=== PATIENT | male | born 1940 | race Caucasian/White ===

== ENCOUNTER 2024-01-17 11:54 | Emergency (ER) | payer MEDICARE, OTHER ==
[~2024-01-17] VITALS: Ht 172.7 cm; Wt 71.0 kg
[~2024-01-17 11:54] MED LIST: ACET325T51 PO; CIPR500T10 PO; DOCU-385 PO
[2024-01-17 12:34] VITALS: TEMP 98.1
[2024-01-17 15:32] VITALS: BP 126/59; PULSE 58; RESP 20
[2024-01-17 23:21] LABS: GLUCOMETER DEV NAME(LOC) ER.6; GLUCOSE,POINT OF CARE 97 MG/DL (70-110)
== END 2024-01-17 15:45 ==
LOC: EMS 11:55
DX: S42.201A Unspecified fracture of upper end of right humerus, initial encounter for closed fracture (principal); Z89.432 Acquired absence of left foot; X58.XXXA Exposure to other specified factors, initial encounter; Y93.89 Activity, other specified; Y92.89 Other specified places as the place of occurrence of the external cause; Y99.8 Other external cause status
CPT/HCPCS: 29105; 82962; 93005; 99284

== ENCOUNTER 2024-06-30 13:21 | Inpatient (IN) | payer MEDICARE, OTHER ==
[~2024-06-30] VITALS: Ht 167.6 cm; Wt 68.5 kg
[~2024-06-30 13:21] MED LIST changes: -ACET325T51 PO; +ACID1GRA PO; +ASCO500 PO; -CIPR500T10 PO; +DIVA125C20 PO; -DOCU-385 PO; +TRAZ-257 PO
[2024-06-30] MEDS ORDERED: HYDR-4062 PO (13:29)
[2024-06-30 14:06] LABS: BASOPHILS % (AUTO) 0.6 % (0.0-2.0); EOSINOPHILS % (AUTO) 0.4 % (1.0-6.0); HEMATOCRIT 43.6 % (41-53); HEMOGLOBIN 14.2 g/dL (13.5-17.5); LYMPHOCYTES # (AUTO) 1.7 K/uL (1.0-4.8); LYMPHOCYTES % (AUTO) 16.8 % (22.0-44.0); MEAN CORPUSCULAR HEMOGLOBIN 30.3 pg (26.0-34.0); MEAN CORPUSCULAR HGB CONC 32.5 G/dL (31.0-37.0); MEAN CORPUSCULAR VOLUME 93 fL (80-100); MONOCYTES # (AUTO) 0.8 K/uL (0.1-1.0); MONOCYTES % (AUTO) 7.6 % (2.0-9.0); NEUTROPHILS # (AUTO) 7.5 K/uL (1.8-7.7); NEUTROPHILS % (AUTO) 74.6 % (40.0-70.0); PLATELET COUNT (AUTO) 259 K/uL (150-450); RED BLOOD CELL COUNT(AUTO) 4.68 MIL/uL (4.50-5.90); RED CELL DISTRIBUTION WIDTH 14.9 % (11.5-14.5)
[2024-06-30 14:15] LABS: ANION GAP 7 mmol/L (8-16); CALCIUM, TOTAL 8.9 mg/dL (8.8-10.5); CARBON DIOXIDE 28 mmol/L (22-29); CHLORIDE 102 mmol/L (98-107); CREATININE 0.97 mg/dL (0.60-1.30); GLOMERULAR FILTR. RATE CALC > 60 mL/min (>60); GLUCOSE,RANDOM 109 mg/dL (70-110); POTASSIUM 4.5 mmol/L (3.5-5.1); SODIUM SERUM 137 mmol/L (136-145); UREA NITROGEN, BLOOD 22 mg/dL (7-18)
[2024-06-30 14:22] LABS: ALANINE AMINOTRANSFERASE 18 U/L (12-78); ALBUMIN 2.7 g/dL (3.4-5.0); ALCOHOL, BLOOD (SERUM) < 3 mg/dL (0-10); ALKALINE PHOSPHATASE 74 U/L (46-116); ASPARTATE AMINOTRANSFERASE 19 U/L (15-37); BILIRUBIN,TOTAL 0.5 mg/dL (0.1-1.0); TOTAL PROTEIN, SERUM 6.6 g/dL (6.4-8.2)
[2024-06-30] MEDS ORDERED: ZOLPIDEM TARTRATE 5 MG TABLET PO PRN (15:15)
[2024-06-30] MEDS ORDERED: ONDANSETRON HCL 4 MG/2 ML VIAL IVP PRN (15:15)
[2024-06-30] MEDS ORDERED: BISACODYL 10 MG RECTAL RECTAL SUPPOSITORY PR PRN (15:15)
[2024-06-30] MEDS ORDERED: MAGNESIUM HYDROXIDE SUSPENSION 30 ML UDCUP PO PRN (15:15)
[2024-06-30] MEDS ORDERED: MORPHINE SULFATE 2 MG/ML SYRINGE IVP PRN (15:15)
[2024-06-30] MEDS ORDERED: TRAZ-252 PO (15:18)
[2024-06-30] MEDS ORDERED: DIVA-112 PO (15:18)
[2024-06-30] MEDS ORDERED: PARO-37 PO (15:18)
[2024-06-30 16:09] LABS: COVID AG,FIA SOURCE NASAL SWAB
[2024-06-30] MEDS: SODIUM CHLORIDE 0.9% 1,000 ML IV ONE (16:12)
[2024-06-30] MEDS: CEPHALEXIN MONOHYDRATE 500 MG CAPSULE PO SCH (16:12)
[2024-06-30] MEDS: HEPARIN SODIUM,PORCINE 5,000 UNITS/ML VIAL SQ SCH (16:13)
[2024-06-30 16:41] LABS: SARS-COV2 (COVID) ANTIGEN,FIA Negative (Negative)
[2024-06-30] MEDS: DOCUSATE SODIUM 100 MG CAPSULE PO SCH (20:22)
[2024-06-30 20:35] LABS: APPEARANCE,URINE CLEAR (CLEAR); BILIRUBIN,URINE NEGATIVE (NEGATIVE); COLOR,URINE LIGHT YELLOW (YELLOW); GLUCOSE, URINE (UA) NEGATIVE (NEGATIVE); KETONES,URINE NEGATIVE (NEGATIVE); LEUKOCYTE ESTERASE ,URINE NEGATIVE (NEGATIVE); NITRATE,URINE NEGATIVE (NEGATIVE); OCCULT BLOOD,URINE NEGATIVE (NEGATIVE); PROTEIN,URINE NEGATIVE (NEGATIVE); SPECIFIC GRAVITIY, URINE 1.014 (1.003-1.030); UROBILINOGEN,URINE <=1.0 mg/dL (<=1.0)
[2024-06-30 21:05] VITALS: BP 132/71; PULSE 53; RESP 19; TEMP 96.7; O2SAT 99
[2024-06-30 21:06] LABS: AMPHET/METH SCREEN,URINE NEGATIVE (NEGATIVE); BARBITURATE SCREEN, URINE NEGATIVE (NEGATIVE); BENZODIAZEPINES SCREEN,URINE NEGATIVE (NEGATIVE); CANNABINOID SCREEN,URINE NEGATIVE (NEGATIVE); COCAINE SCREEN,URINE NEGATIVE (NEGATIVE); METHADONE SCREEN, URINE NEGATIVE (NEGATIVE); OPIATE SCREEN,URINE NEGATIVE (NEGATIVE); PHENCYCLIDINE SCREEN,URINE NEGATIVE (NEGATIVE)
[2024-06-30 21:07] LABS: ALCOHOL, URINE DRUG SCREEN NEGATIVE (NEGATIVE)
[2024-06-30] MEDS: DIVALPROEX SODIUM 500 MG DR TABLET PO SCH (22:22)
[2024-06-30] MEDS: LACTOBACILLUS ACIDOPHILUS/BULGARICUS GRANULES PACKET PO SCH (22:23)
[2024-06-30] MEDS: ASCORBIC ACID 500 MG TABLET PO SCH (22:23)
[2024-06-30] MEDS: TraZODone HCL 100 MG TABLET PO SCH (22:23)
[2024-06-30 23:09] VITALS: BP 132/66; PULSE 56; RESP 18; TEMP 96.4; O2SAT 96
[2024-07-01 03:03] VITALS: BP 136/61; PULSE 57; RESP 18; TEMP 96.3; O2SAT 97
[2024-07-01] MEDS: HYDROCODONE/ACETAMINOPHEN 5-325 MG TABLET PO PRN (04:41)
[2024-07-01 07:28] LABS: BASOPHILS % (AUTO) 0.6 % (0.0-2.0); EOSINOPHILS % (AUTO) 0.6 % (1.0-6.0); HEMOGLOBIN 13.8 g/dL (13.5-17.5); LYMPHOCYTES # (AUTO) 1.7 K/uL (1.0-4.8); LYMPHOCYTES % (AUTO) 23.3 % (22.0-44.0); MEAN CORPUSCULAR HEMOGLOBIN 30.4 pg (26.0-34.0); MEAN CORPUSCULAR HGB CONC 32.8 G/dL (31.0-37.0); MEAN CORPUSCULAR VOLUME 93 fL (80-100); MONOCYTES # (AUTO) 0.5 K/uL (0.1-1.0); MONOCYTES % (AUTO) 7.2 % (2.0-9.0); NEUTROPHILS % (AUTO) 68.3 % (40.0-70.0); PLATELET COUNT (AUTO) 251 K/uL (150-450); RED BLOOD CELL COUNT(AUTO) 4.53 MIL/uL (4.50-5.90); WHITE BLOOD COUNT (AUTO) 7.3 K/uL (4.5-11.0)
[2024-07-01 07:37] LABS: ANION GAP 10 mmol/L (8-16); CALCIUM, TOTAL 8.5 mg/dL (8.8-10.5); CARBON DIOXIDE 25 mmol/L (22-29); CHLORIDE 103 mmol/L (98-107); CREATININE 0.93 mg/dL (0.60-1.30); GLOMERULAR FILTR. RATE CALC > 60 mL/min (>60); GLUCOSE,RANDOM 143 mg/dL (70-110); SODIUM SERUM 138 mmol/L (136-145); UREA NITROGEN, BLOOD 17 mg/dL (7-18)
[2024-07-01 08:42] VITALS: BP 132/68; PULSE 59; RESP 18; TEMP 98; O2SAT 98
[2024-07-01] MEDS: ACETAMINOPHEN 325 MG TABLET PO PRN (08:47)
[2024-07-01] MEDS: PANTOPRAZOLE SODIUM 40 MG DR TABLET PO SCH (08:47)
[2024-07-01] MEDS: ASPIRIN 81 MG CHEWABLE TABLET PO SCH (15:26)
[2024-07-01] MEDS ORDERED: 0.9% SODIUM CHLORIDE 10 ML SYRINGE IVP ONE (16:23)
[2024-07-01] MEDS ORDERED: IOHEXOL 300 MG/ML 100 ML VIAL ONE (16:24)
[2024-07-01] MEDS ORDERED: SODIUM CHLORIDE 0.9% 100 ML ONE (16:24)
[2024-07-01 16:46] VITALS: BP 135/60; PULSE 54; RESP 18; TEMP 98.5; O2SAT 97
[2024-07-01] MEDS ORDERED: HEPARIN SODIUM,PORCINE 5,000 UNITS/ML VIAL IVP PRN (18:45)
[2024-07-01 19:09] LABS: BASOPHILS % (AUTO) 0.9 % (0.0-2.0); EOSINOPHILS % (AUTO) 0.4 % (1.0-6.0); HEMATOCRIT 43.3 % (41-53); HEMOGLOBIN 14.1 g/dL (13.5-17.5); LYMPHOCYTES # (AUTO) 1.4 K/uL (1.0-4.8); LYMPHOCYTES % (AUTO) 17.3 % (22.0-44.0); MEAN CORPUSCULAR HEMOGLOBIN 30.4 pg (26.0-34.0); MEAN CORPUSCULAR HGB CONC 32.6 G/dL (31.0-37.0); MEAN CORPUSCULAR VOLUME 93 fL (80-100); MONOCYTES # (AUTO) 0.6 K/uL (0.1-1.0); MONOCYTES % (AUTO) 6.8 % (2.0-9.0); NEUTROPHILS # (AUTO) 6.2 K/uL (1.8-7.7); NEUTROPHILS % (AUTO) 74.6 % (40.0-70.0); PLATELET COUNT (AUTO) 245 K/uL (150-450); RED BLOOD CELL COUNT(AUTO) 4.64 MIL/uL (4.50-5.90); RED CELL DISTRIBUTION WIDTH 15.1 % (11.5-14.5); WHITE BLOOD COUNT (AUTO) 8.3 K/uL (4.5-11.0)
[2024-07-01 19:22] LABS: INR 1.1 (0.9-1.1); PROTHROMBIN TIME 11.3 SEC (9.4-11.6)
[2024-07-01 19:30] VITALS: BP 135/71; PULSE 54; RESP 20; TEMP 98.2; O2SAT 99
[2024-07-01] MEDS: HEPARIN SODIUM 25000 UNITS/D5W 250 ML IV PRN (20:02)
[2024-07-02 03:00] VITALS: BP 116/58; PULSE 55; RESP 18; TEMP 97.6; O2SAT 94
[2024-07-02 06:56] LABS: BASOPHILS % (AUTO) 0.7 % (0.0-2.0); EOSINOPHILS % (AUTO) 0.4 % (1.0-6.0); HEMOGLOBIN 13.5 g/dL (13.5-17.5); LYMPHOCYTES # (AUTO) 1.7 K/uL (1.0-4.8); MEAN CORPUSCULAR HEMOGLOBIN 30.4 pg (26.0-34.0); MEAN CORPUSCULAR HGB CONC 32.9 G/dL (31.0-37.0); MEAN CORPUSCULAR VOLUME 92 fL (80-100); MONOCYTES # (AUTO) 0.7 K/uL (0.1-1.0); MONOCYTES % (AUTO) 6.8 % (2.0-9.0); NEUTROPHILS # (AUTO) 7.1 K/uL (1.8-7.7); NEUTROPHILS % (AUTO) 74.1 % (40.0-70.0); PLATELET COUNT (AUTO) 233 K/uL (150-450); RED BLOOD CELL COUNT(AUTO) 4.44 MIL/uL (4.50-5.90); RED CELL DISTRIBUTION WIDTH 14.7 % (11.5-14.5); WHITE BLOOD COUNT (AUTO) 9.6 K/uL (4.5-11.0)
[2024-07-02 06:57] LABS: CALCIUM, TOTAL 8.5 mg/dL (8.8-10.5); CHLORIDE 101 mmol/L (98-107); CREATININE 0.96 mg/dL (0.60-1.30); GLOMERULAR FILTR. RATE CALC > 60 mL/min (>60); GLUCOSE,RANDOM 126 mg/dL (70-110); SODIUM SERUM 134 mmol/L (136-145); UREA NITROGEN, BLOOD 16 mg/dL (7-18)
[2024-07-02 07:01] LABS: ANION GAP 9 mmol/L (8-16); CARBON DIOXIDE 24 mmol/L (22-29)
[2024-07-02 07:12] VITALS: BP 126/62; PULSE 58; RESP 18; TEMP 98.2; O2SAT 95
[2024-07-02] MEDS: ATORVASTATIN CALCIUM 20 MG TABLET PO SCH (09:03)
[2024-07-02] MEDS ORDERED: SODIUM CHLORIDE 0.9% 100 ML ONE (13:28)
[2024-07-02] MEDS ORDERED: IOHEXOL 350 MG/ML 100 ML VIAL ONE (13:28)
[2024-07-02] MEDS ORDERED: 0.9% SODIUM CHLORIDE 10 ML SYRINGE IVP ONE (13:33)
[2024-07-02 16:00] VITALS: BP 121/54; PULSE 59; RESP 19; TEMP 97.2
[2024-07-02] MEDS: HEPARIN SODIUM,PORCINE 5,000 UNITS/ML VIAL IVP PRN (17:25)
[2024-07-02 19:15] VITALS: BP 136/91; PULSE 60; RESP 20; TEMP 97.8; O2SAT 98
[2024-07-03 05:00] VITALS: BP 131/56; PULSE 57; RESP 20; TEMP 98.2; O2SAT 96
[2024-07-03 06:57] LABS: ANION GAP 10 mmol/L (8-16); CALCIUM, TOTAL 8.8 mg/dL (8.8-10.5); CARBON DIOXIDE 25 mmol/L (22-29); CHLORIDE 100 mmol/L (98-107); CREATININE 1.05 mg/dL (0.60-1.30); GLOMERULAR FILTR. RATE CALC > 60 mL/min (>60); GLUCOSE,RANDOM 100 mg/dL (70-110); POTASSIUM 3.9 mmol/L (3.5-5.1); SODIUM SERUM 135 mmol/L (136-145); UREA NITROGEN, BLOOD 17 mg/dL (7-18)
[2024-07-03 09:03] VITALS: BP 138/66; PULSE 57; RESP 19; TEMP 97.7; O2SAT 100
[2024-07-03 09:13] LABS: BASOPHILS % (AUTO) 0.4 % (0.0-2.0); EOSINOPHILS % (AUTO) 0.4 % (1.0-6.0); HEMATOCRIT 40.4 % (41-53); HEMOGLOBIN 13.2 g/dL (13.5-17.5); LYMPHOCYTES # (AUTO) 1.8 K/uL (1.0-4.8); LYMPHOCYTES % (AUTO) 19.9 % (22.0-44.0); MEAN CORPUSCULAR HEMOGLOBIN 30.1 pg (26.0-34.0); MEAN CORPUSCULAR HGB CONC 32.7 G/dL (31.0-37.0); MEAN CORPUSCULAR VOLUME 92 fL (80-100); MONOCYTES # (AUTO) 0.6 K/uL (0.1-1.0); MONOCYTES % (AUTO) 6.7 % (2.0-9.0); NEUTROPHILS # (AUTO) 6.5 K/uL (1.8-7.7); NEUTROPHILS % (AUTO) 72.6 % (40.0-70.0); PLATELET COUNT (AUTO) 218 K/uL (150-450); RED BLOOD CELL COUNT(AUTO) 4.38 MIL/uL (4.50-5.90); WHITE BLOOD COUNT (AUTO) 8.9 K/uL (4.5-11.0)
[2024-07-03] MEDS ORDERED: APIXABAN 5 MG TABLET PO SCH (09:30)
[2024-07-03] MEDS ORDERED: HEPARIN SODIUM,PORCINE 5,000 UNITS/ML VIAL IVP PRN (09:45)
[2024-07-03] MEDS: HEPARIN SODIUM 25000 UNITS/D5W 250 ML IV PRN (14:56)
[2024-07-03 16:04] VITALS: BP 121/62; PULSE 58; RESP 18; TEMP 97.7; O2SAT 98
[2024-07-03 19:41] VITALS: BP 130/70; PULSE 59; RESP 20; TEMP 98.6; O2SAT 99
[2024-07-04 04:42] VITALS: BP 146/91; PULSE 78; RESP 20; TEMP 97.5; O2SAT 99
[2024-07-04 07:34] LABS: BASOPHILS % (AUTO) 0.8 % (0.0-2.0); EOSINOPHILS % (AUTO) 0.2 % (1.0-6.0); HEMOGLOBIN 13.8 g/dL (13.5-17.5); LYMPHOCYTES # (AUTO) 1.8 K/uL (1.0-4.8); LYMPHOCYTES % (AUTO) 19.6 % (22.0-44.0); MEAN CORPUSCULAR HEMOGLOBIN 30.2 pg (26.0-34.0); MEAN CORPUSCULAR HGB CONC 32.8 G/dL (31.0-37.0); MEAN CORPUSCULAR VOLUME 92 fL (80-100); MONOCYTES # (AUTO) 0.7 K/uL (0.1-1.0); MONOCYTES % (AUTO) 7.5 % (2.0-9.0); NEUTROPHILS # (AUTO) 6.4 K/uL (1.8-7.7); NEUTROPHILS % (AUTO) 71.9 % (40.0-70.0); PLATELET COUNT (AUTO) 243 K/uL (150-450); RED BLOOD CELL COUNT(AUTO) 4.56 MIL/uL (4.50-5.90); RED CELL DISTRIBUTION WIDTH 14.8 % (11.5-14.5)
[2024-07-04 07:44] LABS: ANION GAP 11 mmol/L (8-16); CARBON DIOXIDE 26 mmol/L (22-29); CHLORIDE 99 mmol/L (98-107); GLOMERULAR FILTR. RATE CALC > 60 mL/min (>60); GLUCOSE,RANDOM 125 mg/dL (70-110); POTASSIUM 4.2 mmol/L (3.5-5.1); SODIUM SERUM 136 mmol/L (136-145); UREA NITROGEN, BLOOD 25 mg/dL (7-18)
[2024-07-04 08:04] VITALS: BP 138/75; PULSE 77; RESP 19; TEMP 98.2; O2SAT 99
[2024-07-04] MEDS: HEPARIN SODIUM,PORCINE 5,000 UNITS/ML VIAL IVP PRN (12:23)
[2024-07-04 20:13] VITALS: BP 122/55; PULSE 58; RESP 18; TEMP 97.6; O2SAT 99
[2024-07-05 03:45] VITALS: BP 111/50; PULSE 58; RESP 18; TEMP 97.6; O2SAT 97
[2024-07-05 08:22] VITALS: BP 110/50; PULSE 56; RESP 18; TEMP 97.5; O2SAT 97
[2024-07-05 15:24] VITALS: BP 109/51; PULSE 56; RESP 18; TEMP 98.1; O2SAT 99
[2024-07-05 19:55] VITALS: BP 131/74; PULSE 57; RESP 20; TEMP 97.5; O2SAT 97
[2024-07-06 04:11] VITALS: BP 120/61; PULSE 57; RESP 18; TEMP 97.6; O2SAT 95
[2024-07-06 08:15] VITALS: BP 118/62; PULSE 58; RESP 19; TEMP 98.8; O2SAT 96
[2024-07-06 17:54] VITALS: BP 124/60; PULSE 62; RESP 18; TEMP 98.2; O2SAT 96
[2024-07-06 20:24] VITALS: BP 132/75; PULSE 61; RESP 20; TEMP 98.5; O2SAT 94
[2024-07-07 04:28] VITALS: BP 127/53; PULSE 55; RESP 18; TEMP 97.4; O2SAT 96
[2024-07-07 08:12] VITALS: BP 128/62; PULSE 61; RESP 19; TEMP 98; O2SAT 99
[2024-07-07] MEDS ORDERED: APIX5TAB PO (18:44)
[2024-07-07] MEDS ORDERED: ASPI-1450 PO (18:44)
[2024-07-07] MEDS ORDERED: CEPH-558 PO (18:45)
[2024-07-07] MEDS ORDERED: ATOR20TA PO (18:45)
[2024-07-07] MEDS ORDERED: DOCU-385 PO (18:46)
[2024-07-07] MEDS ORDERED: PANT-31 PO (18:48)
[2024-07-07] MEDS ORDERED: BISA10SU11 PR (18:49)
[2024-07-07] MEDS ORDERED: ACET-2247 PO (18:49)
[2024-07-07] MEDS ORDERED: MAGN-169 PO (18:50)
[2024-07-07] MEDS ORDERED: APIXABAN 5 MG TABLET PO SCH (21:00)
== END 2024-07-07 18:44 | DRG 592 ==
LOC: EMS 13:23 → EDH 15:13 → 6N 20:55 → 4E 07-03 17:22
PROVIDERS: ADMIT Internal Medicine; ATTEND Internal Medicine
PROC: GZ56ZZZ Individual Psychotherapy, Supportive (ICD-10-PCS; principal; 2024-07-01)
PROC: GZ52ZZZ Individual Psychotherapy, Cognitive (ICD-10-PCS; 2024-07-01)
DX: L89.616 Pressure-induced deep tissue damage of right heel (principal); S32.401A Unspecified fracture of right acetabulum, initial encounter for closed fracture; E44.0 Moderate protein-calorie malnutrition; I74.5 Embolism and thrombosis of iliac artery; F03.93 Unspecified dementia, unspecified severity, with mood disturbance; S32.591A Other specified fracture of right pubis, initial encounter for closed fracture; I96 Gangrene, not elsewhere classified; E11.52 Type 2 diabetes mellitus with diabetic peripheral angiopathy with gangrene; L97.418 Non-pressure chronic ulcer of right heel and midfoot with other specified severity; E86.0 Dehydration; I25.10 Atherosclerotic heart disease of native coronary artery without angina pectoris; I10 Essential (primary) hypertension; Z68.24 Body mass index [BMI] 24.0-24.9, adult; I48.0 Paroxysmal atrial fibrillation; F25.0 Schizoaffective disorder, bipolar type; Z20.822 Contact with and (suspected) exposure to COVID-19; E11.621 Type 2 diabetes mellitus with foot ulcer; R62.7 Adult failure to thrive; E78.5 Hyperlipidemia, unspecified; G47.33 Obstructive sleep apnea (adult) (pediatric); I49.5 Sick sinus syndrome; Z95.0 Presence of cardiac pacemaker; Z95.1 Presence of aortocoronary bypass graft; Z79.01 Long term (current) use of anticoagulants; Z98.61 Coronary angioplasty status; Y93.89 Activity, other specified; Y92.89 Other specified places as the place of occurrence of the external cause; Y99.8 Other external cause status
CPT/HCPCS: 70450; 71045; 73706; 80048; 80076; 80307; 81003; 82271; 85025; 85610; 85730; 87481; 93005; 93306; 93926; 99285; G0378; G0480; J1644; J7030; J7050; Q9967; 36415-L1; 36415-TC